=== PATIENT | female | born 1945 | race Caucasian/White ===

== ENCOUNTER 2023-09-16 16:21 | Emergency (ER) | payer MEDICARE, MEDICAID ==
[~2023-09-16] VITALS: Ht 154.9 cm; Wt 70.0 kg
[2023-09-16 17:34] LABS: BASO # 0.01 K/mm3 (0.02-0.10); EOS # 0.03 K/mm3 (0.04-0.40); EOS % 0.3 % (1.0-5.0); HEMOGLOBIN 11.7 g/dL (12.5-16.0); LYMPH# 1.32 K/mm3 (1.50-4.00); MEAN CELL VOLUME 91 fl (78-100); MEAN CORPUSCULAR HEMOGLOBIN 30 pg (27-31); MEAN CORPUSCULAR HGB CONC 33 g/dL (33-37); MEAN PLATELET VOLUME 11.9 fl (7.4-10.4); NEU # 8.46 K/mm3 (1.40-6.50); PLATELET COUNT 57 K/mm3 (130-400); RED BLOOD COUNT 3.94 M/mm3 (4.10-5.30); RED CELL DISTRIBUTION WIDTH 15.8 % (11.5-14.5); WHITE BLOOD COUNT 11.3 K/mm3 (4.8-10.8)
[2023-09-16 17:40] LABS: ALBUMIN 2.7 g/dL (3.4-4.8); SODIUM 135 mmol/L (136-145)
[2023-09-16 17:41] LABS: CALCIUM 8.6 mg/dL (8.3-10.5)
[2023-09-16 17:43] LABS: GLUCOSE 183 mg/dL (65-105); TOTAL PROTEIN 5.9 g/dL (6.2-8.1)
[2023-09-16 17:44] LABS: CARBON DIOXIDE 19 mmol/L (23-31); TOTAL BILIRUBIN 5.1 mg/dL (0.2-1.2)
[2023-09-16 17:46] LABS: ALCOHOL IN-HOUSE < 10 mg/dL (<10)
[2023-09-16 17:48] LABS: AST-SGOT 175 U/L (5-34)
[2023-09-16] MEDS ORDERED: PRILOSEC 20MG20 MG PO (17:48)
[2023-09-16 17:49] LABS: ALT/SGPT 89 U/L (0-55)
[2023-09-16] MEDS ORDERED: GABAPENTIN100 MG PO (17:49)
[2023-09-16] MEDS ORDERED: METOPROLOL SUCC25 M1 PO (17:49)
[2023-09-16] MEDS ORDERED: METFORMIN ER500 MG PO (17:49)
[2023-09-16] MEDS ORDERED: ED TYLENOL6 UDTAB/BO PO (17:50)
[2023-09-16 17:56] LABS: TROPONIN-I 0.037 ng/mL (<0.030)
[2023-09-16 18:09] LABS: PARTIAL THROMBOPLASTIN TIME 24.1 SECONDS (21.0-32.0); PROTHROMBIN TIME 12.2 SECONDS (9.0-12.0)
[2023-09-16 18:17] LABS: URINE APPEARANCE CLOUDY; URINE COLOR BROWN
[2023-09-16 18:18] LABS: URINE BILIRUBIN 2+ (NEGATIVE); URINE GLUCOSE NEGATIVE (NEGATIVE); URINE KETONE NEGATIVE (NEGATIVE); URINE PROTEIN(semi-quant) 2+ (NEGATIVE)
[2023-09-16 18:19] LABS: URINE BLOOD 50 ery/uL (NEGATIVE); URINE LEUKOCYTE ESTERASE NEGATIVE (NEGATIVE); URINE NITRATE NEGATIVE (NEGATIVE); URINE UROBILINOGEN 4 mg/dL (NORMAL)
[2023-09-16 21:20] VITALS: BP 107/42
== END 2023-09-16 21:20 | disposition short-term general hospital (02) ==
LOC: ED 16:21
PROVIDERS: Family Medicine
DX: R41.82 Altered mental status, unspecified (principal); R10.11 Right upper quadrant pain; E66.9 Obesity, unspecified; Z68.29 Body mass index [BMI] 29.0-29.9, adult
CPT/HCPCS: J0696; J7030; J7060